=== PATIENT | male | born 1960 | race Caucasian/White ===

== ENCOUNTER 2019-05-16 18:46 | Inpatient (IN) | payer BC ==
[~2019-05-16] VITALS: Ht 170.2 cm; Wt 72.9 kg
[2019-05-16 19:24] LABS: BASOPHILS % (AUTO) 0.2 % (0-1); EOSINOPHILS % (AUTO) 0.2 % (0-6); HEMATOCRIT 48.9 % (42.0-52.0); HEMOGLOBIN 16.3 g/dl (14.0-17.9); LYMPHOCYTES # (AUTO) 1.5 X10'3 (1.1-4.8); LYMPHOCYTES % (AUTO) 7.3 % (21-51); MEAN CORPUSCULAR HEMOGLOBIN 24.9 PG (27.0-31.0); MEAN CORPUSCULAR HGB CONC 33.4 g/dL (33.0-36.5); MEAN CORPUSCULAR VOLUME 74.7 FL (78-98); MEAN PLATELET VOLUME 8.4 FL (7.4-10.4); MONOCYTES # (AUTO) 1.4 X10'3 (0-0.9); MONOCYTES % (AUTO) 6.5 % (2-12); NEUTROPHILS % (AUTO) 85.8 % (42-75); PLATELET COUNT 216 X10'3 (140-440); RED BLOOD COUNT 6.55 X10'6 (4.70-6.10); RED CELL DISTRIBUTION WIDTH 14.1 % (11.5-14.5)
[2019-05-16 19:31] LABS: ALANINE AMINOTRANSFERASE 489 U/L (12-78); ALBUMIN 3.8 G/DL (3.4-5.0); ALBUMIN/GLOBULIN RATIO 0.9 (1.1-1.5); ALKALINE PHOSPHATASE 152 IU/L (46-116); ANION GAP 7 (8-16); ASPARTATE AMINO TRANSFERASE 108 U/L (10-37); BILIRUBIN,TOTAL 1.3 MG/DL (0.1-1.0); BLOOD UREA NITROGEN 13 MG/DL (7-18); BUN/CREATININE RATIO 13.8 (5.4-32.0); CALCIUM 9.1 MG/DL (8.5-10.1); CHLORIDE 100 MMOL/L (99-107); CREATININE 0.94 MG/DL (0.60-1.10); GLUCOSE 113 MG/DL (70-104); LIPASE 625 U/L (73-393); SODIUM 138 MMOL/L (135-145); TOTAL CARBON DIOXIDE 30.8 MMOL/L (24-32); TOTAL PROTEIN 7.9 G/DL (6.4-8.2); eGFR 82 ML/MIN
[2019-05-16] MEDS ORDERED: normal saline 1000ML IV soln IVB ONE (19:45)
[2019-05-16] MEDS ORDERED: ondansetron/PF 4mg/2ml inj IV ONE (19:45)
[2019-05-16 20:15] LABS: CLARITY,URINE CLOUDY (Clear); COLOR,URINE YELLOW (Yellow); GLUCOSE, URINE NEGATIVE (Neg); KETONES,URINE NEGATIVE (Neg); LEUKOCYTE ESTERASE ,URINE NEGATIVE (Neg); NITRITES, URINE NEGATIVE (Neg); OCCULT BLOOD,URINE TRACE-INTACT (Neg); PH,URINE 6.5 (4.8-8.0); PROTEIN,URINE NEGATIVE (Neg)
[2019-05-16] MEDS ORDERED: NO HOME MEDS (20:15)
[2019-05-16 20:18] LABS: UA COLLECTION TYPE CLN CATCH MIDSTREAM
[2019-05-16] MEDS ORDERED: morphine 4 MG/ML inj SYRINge IV ONE (20:20)
[2019-05-16 20:21] LABS: MUCUS STRANDS MODERATE /LPF (Neg); SQUAMOUS EPITHELIAL CELL,UR FEW /LPF (FEW)
[2019-05-16 20:22] LABS: BACTERIA,URINE NONE SEEN /HPF (Neg); WBC,URINE 0-4 /HPF (0-4)
--- NOTE | 2019-05-16 20:28 | NUR ---
inquire with dr coburn regarding pt concern related to morphine because he has low lung capacity and pain meds depress his respiration,as per md ,its 'ok"to administer morphine.notified the family before admininstration.
[2019-05-16] MEDS ORDERED: acetaminophen 325mg tablet PO STA (21:14)
[2019-05-16] MEDS ORDERED: piperacillin/tazo 3.375gm/50ml 50 ML IV ONE (21:15)
[2019-05-16] MEDS ORDERED: HYDROcodone/acetaminophen 5mg/325mg tablet PO PRN (21:15)
[2019-05-16] MEDS ORDERED: magnesium hydroxide 30ml (MOM) UD suspension PO PRN (21:15)
[2019-05-16] MEDS ORDERED: mag hydrox/Alum hydrox/simeth 30ml oral suspension PO PRN (21:15)
[2019-05-16] MEDS ORDERED: morphine 2 MG/ML inj. syringe IV PRN (21:15)
[2019-05-16] MEDS ORDERED: acetaminophen 325mg tablet PO PRN (21:15)
[2019-05-16] MEDS ORDERED: normal saline 1000ML IV soln IV ONE (21:15)
--- NOTE | 2019-05-16 22:32 | NUR ---
Patient in room ED 12. I have received report from José Luis RN in ED and had the opportunity to ask questions and will assume patient care when pt arrives to unit
--- NOTE | 2019-05-16 22:55 | NUR ---
Patient brought up by ED via gurney and was able to ambulate to his bed. VSS
[2019-05-16 23:00] VITALS: BP 107/71
[2019-05-16] MEDS: normal saline 1000ml 1,000 ML IV SCH (23:04)
[2019-05-17] VITALS (16 sets, daily range): BP systolic 100–124; BP diastolic 67–81
[2019-05-17] MEDS: morphine 2 MG/ML inj. syringe IV PRN ×4 (01:03→16:04)
[2019-05-17] MEDS: normal saline 1000ml 1,000 ML IV SCH ×2 (05:26→23:05)
[2019-05-17] MEDS: piperacillin/tazo 4.5gm/100ml 100 ML IV SCH ×2 (05:29→15:04)
--- NOTE | 2019-05-17 06:12 | NUR ---
RECEIVED REPORT FROM RENEE NOVA
[2019-05-17 06:35] LABS: BASOPHILS % (AUTO) 0.2 % (0-1); EOSINOPHILS # (AUTO) 0.1 X10'3 (0-0.9); EOSINOPHILS % (AUTO) 0.3 % (0-6); HEMATOCRIT 42.3 % (42.0-52.0); HEMOGLOBIN 14.1 g/dl (14.0-17.9); LYMPHOCYTES # (AUTO) 1.4 X10'3 (1.1-4.8); LYMPHOCYTES % (AUTO) 7.5 % (21-51); MEAN CORPUSCULAR HEMOGLOBIN 24.6 PG (27.0-31.0); MEAN CORPUSCULAR HGB CONC 33.3 g/dL (33.0-36.5); MONOCYTES # (AUTO) 1.5 X10'3 (0-0.9); MONOCYTES % (AUTO) 7.8 % (2-12); NEUTROPHILS # (AUTO) 15.7 X10'3 (1.8-7.7); NEUTROPHILS % (AUTO) 84.2 % (42-75); PLATELET COUNT 179 X10'3 (140-440); RED BLOOD COUNT 5.71 X10'6 (4.70-6.10); RED CELL DISTRIBUTION WIDTH 14.2 % (11.5-14.5); WHITE BLOOD COUNT 18.7 X10'3 (4.5-11.0)
--- NOTE | 2019-05-17 06:38 | NUR ---
Problems reprioritized. Patient report given, questions answered & plan of care reviewed with RENEE Bhatti.
[2019-05-17 07:06] LABS: ALANINE AMINOTRANSFERASE 292 U/L (12-78); ALBUMIN 2.8 G/DL (3.4-5.0); ALBUMIN/GLOBULIN RATIO 0.8 (1.1-1.5); ALKALINE PHOSPHATASE 109 IU/L (46-116); ANION GAP 9 (8-16); ASPARTATE AMINO TRANSFERASE 57 U/L (10-37); BILIRUBIN,TOTAL 1.2 MG/DL (0.1-1.0); BLOOD UREA NITROGEN 12 MG/DL (7-18); BUN/CREATININE RATIO 18.2 (5.4-32.0); CALCIUM 8.1 MG/DL (8.5-10.1); CHLORIDE 105 MMOL/L (99-107); CREATININE 0.66 MG/DL (0.60-1.10); GLUCOSE 98 MG/DL (70-104); POTASSIUM 3.3 MMOL/L (3.5-5.1); SODIUM 139 MMOL/L (135-145); TOTAL CARBON DIOXIDE 25.1 MMOL/L (24-32); TOTAL PROTEIN 6.1 G/DL (6.4-8.2); eGFR > 90 ML/MIN
--- NOTE | 2019-05-17 08:30 | NUR ---
sent a page to hospitalist letting hospitalist know that pts k is 3.3, no new orders at this time
[2019-05-17] MEDS ORDERED: FLU VACC QS2019-20 36MOS UP/PF 60 MCG/0.5 ML SYRINGE IMVAC ONE (10:00)
[2019-05-17] MEDS: ondansetron/PF 4mg/2ml inj IV PRN (11:46)
--- NOTE | 2019-05-17 11:46 | NUR ---
Student Medication Administration: For this medication-pass time frame, all medication were reviewed, dispensed, administered and documented per hospital policy by [facility]. Student documentation: I have reviewed all interventions, assessments performed and documented by [facility].
[2019-05-17] MEDS ORDERED: potassium Cl 20 mEq SR tablet PO PRN ×2 (12:45)
[2019-05-17] MEDS ORDERED: potassium CL 10mEq/100ml bag 100 ML IV PRN (12:45)
[2019-05-17] MEDS: potassium CL 10mEq/100ml bag 100 ML IV PRN (13:05)
[2019-05-17 14:03] LABS: LIPASE 303 U/L (73-393)
[2019-05-17] MEDS ORDERED: ringers solution, lacted 1,000 ML IV SCH (16:06)
[2019-05-17] MEDS ORDERED: ondansetron/PF 4mg/2ml inj IV PRN (16:10)
[2019-05-17] MEDS ORDERED: morphine 4 MG/ML inj SYRINge IV PRN ×2 (16:10)
[2019-05-17] MEDS ORDERED: labetalol 20mg/4ml (5mg/ml) syringe IV PRN (16:10)
[2019-05-17] MEDS ORDERED: fentaNYL/PF 50MCG/1 ML 2ML syringe IV PRN ×2 (16:10)
[2019-05-17] MEDS ORDERED: hydrALAZINE 20mg/ml inj. IV PRN (16:10)
--- NOTE | 2019-05-17 17:06 | NUR ---
gave report to shaan clarke in recovery
[2019-05-17] MEDS ORDERED: BUPIVAcaine/PF 2.5 mg/ml (0.25%) 30ml vial ONE (17:37)
[2019-05-17] MEDS ORDERED: ceFAZolin 1000mg inj ONE (17:37)
[2019-05-17] MEDS ORDERED: phenylephrine 10mg/ml inj. ONE (17:49)
[2019-05-17] MEDS ORDERED: dexamethasone sod phosphate 10mg/ml inj ONE (17:49)
[2019-05-17] MEDS ORDERED: sevoflurane 250ml liquid IH ONE (17:49)
[2019-05-17] MEDS ORDERED: fentaNYL/PF 50MCG/1 ML 2ML syringe ONE (17:52)
[2019-05-17] MEDS ORDERED: propofol inj 20 ML IV ONE (17:53)
[2019-05-17] MEDS ORDERED: rocuronium 10mg/ml inj IV ONE (17:53)
[2019-05-17] MEDS ORDERED: midazolam 2 mg/2 ml injection ONE (17:53)
[2019-05-17] MEDS ORDERED: glycopyrrolate 0.2mg/ml inj ONE (17:53)
[2019-05-17] MEDS ORDERED: LIDOcaine 2% (20mg/ml) 5ml vial ONE (17:53)
[2019-05-17] MEDS ORDERED: ondansetron/PF 4mg/2ml inj ONE (18:03)
--- NOTE | 2019-05-17 18:28 | NUR ---
gave report to shaan barnard
--- NOTE | 2019-05-17 18:51 | NUR ---
Received from OR via SURGICAL BED , accompanied by Anesthesiologist BARB and report given by Anesthesiolgist. PATIENT WITH 20G PIV IN RIGHT UE RUNNING LR AT 100. DENIES PAIN, VSS. 10L MASK ON WITH 97% SATURATIONS. 3 ABDOMINAL BANDAIDS PRESENT, ALL CDI. Addendum: 05/17/19 at 1859 by Jerry Beard RN, RN Amended: Links added.
--- NOTE | 2019-05-17 19:37 | NUR ---
report received from RENEE Edwards. awaiting pt arrival to unit
--- NOTE | 2019-05-17 19:51 | NUR ---
ALL CRITERIA FOR TRANSFER TO THE FLOOR HAS BEEN ACHIEVED. VSS. BED LOW, CALL LIGHT AND VS. SET IN PLACE. RN PRESENT TO ACCEPT CARE. PATIENT RESTING COMFORTABLY IN BED. BELONGINGS SENT WITH PATIENT. DRESSINGS CDI. RN MIRNA PRESENT TO ACCEPT CARE OF PATIENT. Addendum: 05/17/19 at 2014 by Jerry Beard RN, RN Amended: Links added.
[2019-05-17] MEDS: lactobacillus rhamnosus 10,000 MMU CELLS/CAPSULE PO SCH (23:04)
[2019-05-18] MEDS: piperacillin/tazo 4.5gm/100ml 100 ML IV SCH ×4 (00:15→22:36)
[2019-05-18] MEDS: morphine 2 MG/ML inj. syringe IV PRN ×2 (00:16→23:00)
[2019-05-18 00:32] VITALS: BP 108/70
[2019-05-18] MEDS: normal saline 1000ml 1,000 ML IV SCH ×3 (03:15→22:42)
[2019-05-18 04:00] VITALS: BP 112/72
[2019-05-18 04:37] LABS: BASOPHILS % (AUTO) 0.1 % (0-1); EOSINOPHILS % (AUTO) 0 % (0-6); HEMATOCRIT 40.5 % (42.0-52.0); HEMOGLOBIN 13.4 g/dl (14.0-17.9); LYMPHOCYTES # (AUTO) 0.9 X10'3 (1.1-4.8); LYMPHOCYTES % (AUTO) 4.7 % (21-51); MEAN CORPUSCULAR HEMOGLOBIN 24.4 PG (27.0-31.0); MEAN CORPUSCULAR HGB CONC 33.1 g/dL (33.0-36.5); MEAN CORPUSCULAR VOLUME 73.7 FL (78-98); MEAN PLATELET VOLUME 8.5 FL (7.4-10.4); MONOCYTES # (AUTO) 0.7 X10'3 (0-0.9); MONOCYTES % (AUTO) 3.8 % (2-12); NEUTROPHILS % (AUTO) 91.4 % (42-75); PLATELET COUNT 186 X10'3 (140-440); RED CELL DISTRIBUTION WIDTH 14.2 % (11.5-14.5); WHITE BLOOD COUNT 18.6 X10'3 (4.5-11.0)
[2019-05-18 04:57] LABS: ALANINE AMINOTRANSFERASE 230 U/L (12-78); ALBUMIN 2.6 G/DL (3.4-5.0); ALBUMIN/GLOBULIN RATIO 0.7 (1.1-1.5); ALKALINE PHOSPHATASE 119 IU/L (46-116); ANION GAP 9 (8-16); ASPARTATE AMINO TRANSFERASE 61 U/L (10-37); BILIRUBIN,TOTAL 1.2 MG/DL (0.1-1.0); BLOOD UREA NITROGEN 11 MG/DL (7-18); BUN/CREATININE RATIO 15.7 (5.4-32.0); CALCIUM 8.4 MG/DL (8.5-10.1); CHLORIDE 103 MMOL/L (99-107); GLUCOSE 132 MG/DL (70-104); POTASSIUM 3.5 MMOL/L (3.5-5.1); SODIUM 138 MMOL/L (135-145); TOTAL CARBON DIOXIDE 26.2 MMOL/L (24-32); TOTAL PROTEIN 6.2 G/DL (6.4-8.2); eGFR > 90 ML/MIN
--- NOTE | 2019-05-18 05:33 | NUR ---
pt ambulated 600' tolerated well
--- NOTE | 2019-05-18 06:23 | NUR ---
report given to RENEE Do
--- NOTE | 2019-05-18 06:33 | NUR ---
Patient in room [facility] 346. I have received report from SUE ROGERS RN and had the opportunity to ask questions and assume patient care. Addendum: 05/18/19 at 0635 by Ernestina Anderson RN RECEIVED REPORT FROM MIRNA ROGERS RN
--- NOTE | 2019-05-18 07:07 | NUR ---
PT LET TECH KNOW HE NEEDED PAIN MEDS. I CHECKED HIS PAIN LEVEL 12/11 HE HAS BEEN GETTING MORPHINE. PT STATES HE WANTS A PILL. BREAK NURSE WILL GIVE NORCO FOR ME.
[2019-05-18] MEDS: lactobacillus rhamnosus 10,000 MMU CELLS/CAPSULE PO SCH ×2 (07:09→19:36)
[2019-05-18] MEDS: HYDROcodone/acetaminophen 10/325mg tab PO PRN ×3 (07:10→19:36)
--- NOTE | 2019-05-18 07:20 | NUR ---
DR CALLE ROUNDED AND ASKED FOR MRCP RESULTS. THEY ARE NOT IN. PER SURGEON. "IF NO STONES IN THE COMMON BILE DUCT PT CAN GO HOME, IF STONES ARRANGE FOR REMOVAL. HE ASLO STATES HOSPITALIST CAN DC
[2019-05-18] MEDS: K and/or MAG REPLACEMENT MC SCH (08:00)
--- NOTE | 2019-05-18 08:11 | NUR ---
checked with pt to see if he was ready for his flu vaccine. he states i had a fever i'm not sure i want it yet. he spokewith his (at bedside) she stated [facility] get it a [facility] when [facility] leave. i told pt to think about it and let me know, i would check back at 1000.
--- NOTE | 2019-05-18 08:35 | NUR ---
CALLED RADIOLOGY REGARDING THE READ FOR MRCP DONE LATE LAST NIGHT. THEY STATE RADIOLOGIST JUST WALKED IN. PAGED DR ROONEY TO UPDATE HIM
[2019-05-18 11:00] VITALS: BP 100/65
--- NOTE | 2019-05-18 13:15 | NUR ---
FLU VACCINE STILL NOT AVAILABLE IN [facility]. MESSAGED PHARMACY FOR FLU SHOT
--- NOTE | 2019-05-18 17:48 | NUR ---
Problems reprioritized. Patient report given, questions answered & plan of care reviewed with PRUDENCE RN.
[2019-05-18 18:00] VITALS: BP 116/65
--- NOTE | 2019-05-18 18:20 | NUR ---
Patient in room [facility] 346. I have received report from Ernestina DURAN and had the opportunity to ask questions and assume patient care.
[2019-05-18] MEDS: ondansetron/PF 4mg/2ml inj IV PRN (20:38)
[2019-05-19 00:17] VITALS: BP 105/58
[2019-05-19] MEDS: morphine 2 MG/ML inj. syringe IV PRN ×5 (02:15→20:58)
[2019-05-19 05:39] LABS: BASOPHILS % (AUTO) 0.1 % (0-1); EOSINOPHILS # (AUTO) 0.2 X10'3 (0-0.9); EOSINOPHILS % (AUTO) 1.3 % (0-6); HEMATOCRIT 40.3 % (42.0-52.0); HEMOGLOBIN 13.3 g/dl (14.0-17.9); LYMPHOCYTES # (AUTO) 1.4 X10'3 (1.1-4.8); LYMPHOCYTES % (AUTO) 8.1 % (21-51); MEAN CORPUSCULAR HEMOGLOBIN 24.8 PG (27.0-31.0); MEAN CORPUSCULAR VOLUME 75.1 FL (78-98); MEAN PLATELET VOLUME 8.7 FL (7.4-10.4); MONOCYTES # (AUTO) 1.3 X10'3 (0-0.9); MONOCYTES % (AUTO) 7.7 % (2-12); NEUTROPHILS # (AUTO) 14.3 X10'3 (1.8-7.7); NEUTROPHILS % (AUTO) 82.8 % (42-75); PLATELET COUNT 190 X10'3 (140-440); RED BLOOD COUNT 5.36 X10'6 (4.70-6.10); WHITE BLOOD COUNT 17.2 X10'3 (4.5-11.0)
[2019-05-19] MEDS: piperacillin/tazo 4.5gm/100ml 100 ML IV SCH ×3 (05:50→22:34)
--- NOTE | 2019-05-19 06:24 | NUR ---
Problems reprioritized. Patient report given, questions answered & plan of care reviewed with Mirela DURAN. Patient resting.
--- NOTE | 2019-05-19 06:27 | NUR ---
Patient in room [facility] 346. I have received report from Cara DURAN and had the opportunity to ask questions and assume patient care.
[2019-05-19 07:04] LABS: ALANINE AMINOTRANSFERASE 154 U/L (12-78); ALBUMIN 2.3 G/DL (3.4-5.0); ALBUMIN/GLOBULIN RATIO 0.7 (1.1-1.5); ALKALINE PHOSPHATASE 79 IU/L (46-116); ANION GAP 5 (8-16); ASPARTATE AMINO TRANSFERASE 36 U/L (10-37); BLOOD UREA NITROGEN 10 MG/DL (7-18); BUN/CREATININE RATIO 15.6 (5.4-32.0); CALCIUM 7.7 MG/DL (8.5-10.1); CHLORIDE 104 MMOL/L (99-107); CREATININE 0.64 MG/DL (0.60-1.10); GLUCOSE 101 MG/DL (70-104); SODIUM 138 MMOL/L (135-145); TOTAL CARBON DIOXIDE 28.6 MMOL/L (24-32); TOTAL PROTEIN 5.5 G/DL (6.4-8.2); eGFR > 90 ML/MIN
[2019-05-19] MEDS: lactobacillus rhamnosus 10,000 MMU CELLS/CAPSULE PO SCH ×3 (07:36→20:23)
[2019-05-19] MEDS: K and/or MAG REPLACEMENT MC SCH (07:40)
[2019-05-19 08:05] VITALS: BP 88/49
[2019-05-19] MEDS: normal saline 1000ml 1,000 ML IV SCH ×2 (09:36→20:23)
[2019-05-19] MEDS: potassium CL 10mEq/100ml bag 100 ML IV PRN ×4 (12:03→15:40)
[2019-05-19 12:59] VITALS: BP 103/65
[2019-05-19 18:15] VITALS: BP 108/66
--- NOTE | 2019-05-19 18:23 | NUR ---
Patient c/o abdominal pain after eating. Seen by Dr Day, new order to keep NPO. Pt K 3.0 replacement given. Patient report given, questions answered & plan of care reviewed with Melissa DURAN [].
--- NOTE | 2019-05-19 18:28 | NUR ---
Patient in room [facility] 346. I have received report from RENEE Dietz and had the opportunity to ask questions and assume patient care.
[2019-05-19] MEDS: ondansetron/PF 4mg/2ml inj IV PRN (20:15)
[2019-05-20 00:47] VITALS: BP 98/63
[2019-05-20] MEDS: morphine 2 MG/ML inj. syringe IV PRN ×4 (01:09→15:36)
[2019-05-20 05:27] LABS: BASOPHILS % (AUTO) 0.2 % (0-1); EOSINOPHILS # (AUTO) 0.2 X10'3 (0-0.9); EOSINOPHILS % (AUTO) 1.2 % (0-6); HEMATOCRIT 38.8 % (42.0-52.0); HEMOGLOBIN 12.8 g/dl (14.0-17.9); LYMPHOCYTES # (AUTO) 1.5 X10'3 (1.1-4.8); MEAN CORPUSCULAR HEMOGLOBIN 24.6 PG (27.0-31.0); MEAN CORPUSCULAR HGB CONC 32.9 g/dL (33.0-36.5); MEAN CORPUSCULAR VOLUME 74.8 FL (78-98); MEAN PLATELET VOLUME 8.4 FL (7.4-10.4); MONOCYTES # (AUTO) 1.5 X10'3 (0-0.9); MONOCYTES % (AUTO) 8.7 % (2-12); NEUTROPHILS # (AUTO) 13.7 X10'3 (1.8-7.7); NEUTROPHILS % (AUTO) 80.9 % (42-75); PLATELET COUNT 208 X10'3 (140-440); RED BLOOD COUNT 5.19 X10'6 (4.70-6.10); RED CELL DISTRIBUTION WIDTH 13.7 % (11.5-14.5); WHITE BLOOD COUNT 16.9 X10'3 (4.5-11.0)
[2019-05-20] MEDS: piperacillin/tazo 4.5gm/100ml 100 ML IV SCH ×2 (05:46→13:21)
[2019-05-20] MEDS: normal saline 1000ml 1,000 ML IV SCH (05:47)
[2019-05-20 05:56] LABS: ALANINE AMINOTRANSFERASE 119 U/L (12-78); ALBUMIN 2.3 G/DL (3.4-5.0); ALBUMIN/GLOBULIN RATIO 0.7 (1.1-1.5); ALKALINE PHOSPHATASE 86 IU/L (46-116); ANION GAP 9 (8-16); ASPARTATE AMINO TRANSFERASE 24 U/L (10-37); BILIRUBIN,TOTAL 1.3 MG/DL (0.1-1.0); BLOOD UREA NITROGEN 10 MG/DL (7-18); BUN/CREATININE RATIO 15.9 (5.4-32.0); CALCIUM 8.3 MG/DL (8.5-10.1); CHLORIDE 102 MMOL/L (99-107); CREATININE 0.63 MG/DL (0.60-1.10); GLUCOSE 85 MG/DL (70-104); POTASSIUM 3.2 MMOL/L (3.5-5.1); SODIUM 138 MMOL/L (135-145); TOTAL CARBON DIOXIDE 27.1 MMOL/L (24-32); TOTAL PROTEIN 5.6 G/DL (6.4-8.2); eGFR > 90 ML/MIN
--- NOTE | 2019-05-20 06:23 | NUR ---
Patient in room [facility] 346. I have received report from Melissa DURAN and had the opportunity to ask questions and assume patient care.
--- NOTE | 2019-05-20 06:27 | NUR ---
Problems reprioritized. Patient report given, questions answered & plan of care reviewed with RENEE Dietz.
[2019-05-20 08:00] VITALS: BP 98/56
[2019-05-20] MEDS: K and/or MAG REPLACEMENT MC SCH (08:00)
[2019-05-20] MEDS: lactobacillus rhamnosus 10,000 MMU CELLS/CAPSULE PO SCH (08:00)
[2019-05-20] MEDS: potassium CL 10mEq/100ml bag 100 ML IV PRN ×2 (08:27→10:10)
[2019-05-20] MEDS ORDERED: AMOX500C2 PO (10:04)
[2019-05-20] MEDS ORDERED: potassium Cl 20 mEq SR tablet PO PRN ×2 (13:15)
[2019-05-20] MEDS ORDERED: potassium CL 10mEq/100ml bag 100 ML IV PRN (13:15)
--- NOTE | 2019-05-20 16:03 | NUR ---
Patient D/C home by Dr Stark. New prescription sent to [facility] on [address]. Discharge and medication instructions given to patient. Pt left hospital on stable conditions via private vehicle accompanied by daughter.
== END 2019-05-20 15:56 | disposition home or self-care (01) | DRG 417 ==
LOC: ER 18:47 → ED HOLD 21:15 → ORTHO 4S 22:54 → SUR 3N 05-17 20:00
PROVIDERS: ADMIT Internal Medicine; ATTEND Hospitalist
PROC: 3E02340 Introduction of Influenza Vaccine into Muscle, Percutaneous Approach (ICD-10-PCS; 2019-05-17)
PROC: 0FT44ZZ Resection of Gallbladder, Percutaneous Endoscopic Approach (ICD-10-PCS; principal; 2019-05-17 17:49)
DX: K80.62 Calculus of gallbladder and bile duct with acute cholecystitis without obstruction (principal); K85.10 Biliary acute pancreatitis without necrosis or infection; E87.2 Acidosis; E87.6 Hypokalemia; Z23 Encounter for immunization
CPT/HCPCS: 96374; 96375; 99285; Z7506; Z7508; 36415; 74176; 74181; 76700; 80053; 81001; 83605; 83690; 84132; 84145; 85025; 87040; 87077; 87081; 87186; A4215; A4618; A7000; G0378; J0690; J1100; J2001; J2250; J2270; J2370; J2405; J2543; J2704; J3010; J3480; J3490; J7030; J7120; Q2037